=== PATIENT | female | born 1970 | race African-American/Black ===

== ENCOUNTER 2020-11-21 03:45 | Emergency (ER) | payer OTHER ==
[~2020-11-21] VITALS: Ht 170.2 cm; Wt 113.4 kg
[~2020-11-21 03:45] MED LIST: AMBIEN 10 MG TA10 MG PO; IBUPROFEN200 M1 PO; LOESTRIN1 EAC1 PO; NORCO 5-325 TA1 EACH PO; RED YEAST RICE600 MG PO; TRAMADOL 50 MG50 MG PO; VITAMIN B12-FO1 EAC1 PO; VITAMINC500 PO; WOMEN'S DAILY1 EACH PO
[2020-11-21] MEDS ORDERED: VITAMIN B-121000 MC2 SUBLING (04:01)
[2020-11-21] MEDS ORDERED: METFORMIN HCL500 M3 PO (04:01)
[2020-11-21] MEDS ORDERED: IRON PO (04:02)
[2020-11-21] MEDS ORDERED: BLACK ELDERBER1 EACH PO (04:02)
[2020-11-21] MEDS ORDERED: NIACIN 500 MG500 M1 PO (04:03)
[2020-11-21] MEDS ORDERED: PROBIOTIC1 EAC3 PO (04:06)
[2020-11-21 04:46] LABS: ABSOLUTE NEUTROPHILS 4.1 thou/uL (1.4-8.2); BASOPHILS 0.4 % (0.0-2.0); EOSINOPHILS 2.2 % (0.0-3.0); HEMATOCRIT 38.2 % (37.0-47.0); HEMOGLOBIN 12.5 gm/dL (12.0-15.0); LYMPHOCYTES 34.3 % (24.0-44.0); MCH 28.8 pg (26.0-34.0); MCHC 32.6 g/dL (28.0-37.0); MCV 88.2 fL (80.0-100.0); MONOCYTES 11.5 % (1.0-8.0); PLATELET COUNT 242 thou/uL (150-400); POLYS 51.6 % (36.0-66.0); RBC 4.33 mil/uL (4.20-5.00); RDW 13.8 % (10.5-14.5)
[2020-11-21 04:53] LABS: ANION GAP 12 mmol/L (7-16); BUN 14 mg/dL (7-18); CALCIUM 8.7 mg/dL (8.5-10.1); CHLORIDE 106 mmol/L (98-107); CO2 24 mmol/L (21-32); CREATININE 0.8 mg/dL (0.6-1.0); GLUCOSE 100 mg/dL (74-106); POTASSIUM 3.5 mmol/L (3.5-5.1); SODIUM 142 mmol/L (136-145)
[2020-11-21 04:59] LABS: TROPONIN-I <0.06 ng/mL (<0.06)
[2020-11-21 05:42] VITALS: BP 112/81
--- NOTE | 2020-11-21 11:28 | EKG ---
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1970 Requested By: Rodolfo Serna Order Number: [id number] MD: Umesh More Measurements Intervals [place] Rate: 91 P: 255 MT: 114 QRS: 16 QRSD: 80 T: 24 QT: 347 QTc: 427 Interpretive Statements Ectopic atrial rhythm Borderline short MT interval Diffuse ST segment elevation, consider early repolarization, pericarditis, or injury Compared to ECG 09/26/2013 22:19:25 Ectopic atrial rhythm now present Repolarization abnormality is more pronounced Electronically Signed On 11-21-2020 11:28:11 CAT CRACKER OPERATOR by Umesh More [email or web address] <ELECTRONICALLY SIGNED> By: Umesh More MD, [facility] 11/21/20 [id number] Umesh More MD, [facility] /EPI
--- NOTE | 2020-11-21 11:29 | EKG ---
[place] [address] [facility] [place] [address] ELECTROCARDIOGRAM REPORT Name: DIANA RETANA [id number] Admission: 11/21/20 Attend Phys: Discharge: 11/21/20 Date of : 74 Report #: [id number] [facility] ED Test Date: 2020-11-21 Test Time: 05:15:48 Pat Name: DIANA RETANA Department: Room: Gender: F Marketing Representative: debbie : 1970 Requested By: Rodolfo Serna Order Number: [id number] MD: Umesh More Measurements Intervals [place] Rate: 83 P: 263 VT: 125 QRS: 19 QRSD: 81 T: 24 QT: 373 QTc: 439 Interpretive Statements Ectopic atrial rhythm Diffuse ST segment elevation, consider early repolarization, pericarditis, or injury Compared to ECG 11/21/2020 03:54:49 No significant changes Electronically Signed On 11-21-2020 11:29:18 LINUX SUPPORT ENGINEER by Umesh More [email or web address] <ELECTRONICALLY SIGNED> By: Umesh More MD, [facility] 11/21/20 1129 4 Umesh More MD, [facility] /EPI
== END 2020-11-21 05:42 | disposition home or self-care (01) ==
LOC: ER 03:45
PROVIDERS: Emergency Medicine
DX: R00.2 Palpitations (principal); E78.5 Hyperlipidemia, unspecified; Z79.899 Other long term (current) drug therapy; Z88.8 Allergy status to other drugs, medicaments and biological substances